=== PATIENT | female | born 1950 | race Two or more races ===

== ENCOUNTER → 2017-03-06 | Outpatient (CLI) | payer SELFPAY ==
[~2017-03-06] VITALS: Ht 162.6 cm; Wt 93.0 kg
[2017-03-06 12:15] VITALS: BP 163/80
[2017-03-06 16:45] LABS: Basophils # (auto) 0 uL; Basophils % (auto) 0.3 % (0.0-2.0); Eosinophils # (auto) 0.1 uL; Eosinophils % (auto) 1.2 % (0.0-7.0); Hematocrit 43.1 % (36.0-46.0); Hemoglobin 14.3 g/dL (12.2-16.2); Lymphocytes # (auto) 1.4 uL; Lymphocytes % (auto) 20.4 % (10.0-50.0); Mean Corpuscular Hemoglobin 30.3 pg (28.0-32.0); Mean Corpuscular Hgb Conc. 33.3 g/dL (32.0-36.0); Mean Corpuscular Volume 91.2 fL (80.0-100.0); Mean Platelet Volume 10.7 fL (7.4-10.4); Monocytes # (auto) 0.2 uL; Monocytes % (auto) 3.4 % (0.0-12.0); Neutrophils # (auto) 5.1 uL; Neutrophils % (auto) 74.7 % (37.0-80.0); Platelet Count (auto) 224 10^3/uL (140-450); Red Cell Distribution Width 13.7 % (11.6-16.0); White Blood Cell 6.9 10^3/uL (4.4-10.8)
[2017-03-06 17:04] LABS: Albumin 3.8 g/dL (3.4-5.0); BUN/Creatinine Ratio 14.8; Calcium 9.4 mg/dL (8.5-10.1); Magnesium 1.9 mg/dL (1.6-2.6); Potassium 3.9 mmol/L (3.5-5.1)
[2017-03-06 17:06] LABS: Bilirubin, Total 0.7 mg/dL (0.2-1.0); Total Protein 7.4 g/dL (6.4-8.2)
== END | disposition home or self-care (01) ==
LOC: CHF HDHVI 13:01
PROVIDERS: ATTEND Internal Medicine Cardiovascular Disease
DX: I10 Essential (primary) hypertension (principal); E11.9 Type 2 diabetes mellitus without complications; E03.9 Hypothyroidism, unspecified; D64.9 Anemia, unspecified; E55.9 Vitamin D deficiency, unspecified
CPT/HCPCS: 36415; 80053; 82306; 83036; 83735; 84436; 84443; 84480; 85025; 93005; 93017; 93701; G0463